=== PATIENT | male | born 1985 | race Caucasian/White ===

== ENCOUNTER 2017-07-28 17:04 | Emergency (ER) | payer SELFPAY ==
[~2017-07-28] VITALS: Ht 203.2 cm; Wt 78.9 kg
[~2017-07-28 17:04] MED LIST: CLIN300C8 PO; IBUP-1223 PO
[2017-07-28 17:12] VITALS: BP 129/75
== END 2017-07-28 18:42 | disposition home or self-care (01) ==
LOC: ED 17:42
DX: S93.491A Sprain of other ligament of right ankle, initial encounter (principal); S93.611A Sprain of tarsal ligament of right foot, initial encounter; G89.11 Acute pain due to trauma; W01.0XXA Fall on same level from slipping, tripping and stumbling without subsequent striking against object, initial encounter; Y93.89 Activity, other specified; Y92.410 Unspecified street and highway as the place of occurrence of the external cause; Y99.8 Other external cause status
CPT/HCPCS: 99284